=== PATIENT | male | born 1980 ===

== ENCOUNTER 2017-08-04 16:30 | Emergency (ER) | payer SELFPAY ==
[~2017-08-04] VITALS: Ht 177.8 cm; Wt 72.6 kg
--- NOTE | 2017-08-04 16:20 | Emergency Room Report ---
History of Present Illness General Source: Patient Present Illness HPI Patient is a 37-year-old male brought in by EMS. The patient denies any medical complaints. He reports having recent alcohol use. He denies any fever. The patient was brought in by EMS after bystanders called. He was found lying in the street. Allergies: Coded Allergies: No Known Allergies (Unverified , 08/04/17) Patient History Reviewed Nursing Documentation: PMH: Agreed; PSxH: Agreed Review of Systems All Other Systems: limited - by poor historian Physical Exam General Appearance: well appearing, no apparent distress, alert, GCS 15 Head: normocephalic, atraumatic ENT: hearing grossly normal, normal voice Neck: full range of motion, supple Respiratory: no respiratory distress, speaking full sentences Cardiovascular #1: normal inspection Gastrointestinal: normal inspection, non tender, soft Musculoskeletal: no calf tenderness Neurologic: normal inspection, alert, oriented x3, responsive, normal gait, other - ambulatory without assistance Psychiatric: mood/affect normal Skin: no rash Medical Decision Making Diagnostic Impression: Primary Impression: Alcohol abuse ER Course The patient was brought in by EMS for altered mental status. Differential diagnosis included was not limited to alcohol abuse, hypoglycemia, drug abuse, schizophrenia among others. Patient has a benign exam and does not appear to require any further imaging or laboratory testing at this time. The patient was present emergency department. Patient stated that he wanted to leave and did not want further treatment. The patient refused the medical testing and declined to give his name. Status: improved Disposition: ELOPED Condition: Stable Christophe Paez Aug 04, 2017 16:20
[2017-08-04 16:38] VITALS: BP 122/74
[2017-08-04 16:41] VITALS: BP 122/74
== END 2017-08-04 16:41 | disposition left against medical advice (07) ==
LOC: EDBD 16:30 → EMR 16:40
DX: F10.10 Alcohol abuse, uncomplicated (principal); R41.82 Altered mental status, unspecified
CPT/HCPCS: 99281